=== PATIENT | female | born 1985 ===

== ENCOUNTER 2017-09-25 20:03 | Emergency (ER) | payer SELFPAY ==
[2017-09-25 20:18] VITALS: RESP 16
--- NOTE | 2017-09-25 21:29 | ED PDOC ---
HPI: Chest Pain Time Seen by Provider: 09/25/17 20:56 Chief Complaint (Nursing): Chest Pain Chief Complaint (Provider): chest pain History Per: Patient, It Support Specialist ([id number]) History/Exam Limitations: no limitations Onset/Duration Of Symptoms: Hrs (8) Current Symptoms Are (Timing): Still Present Additional History Per: Patient Additional Complaint(s): 32 y/o female no past medical history presents with left-sided chest pain x 9 hours. Associated generalized weakness and fatigue; patient has a suspicion she could be . Denies fever, cough, congestion, nausea/vomiting, shortness of breath, palpitations, abdominal pain, recent travel, urinary symptoms, vaginal bleeding/discharge, leg pain/swelling. Past Medical History Reviewed: Historical Data, Nursing Documentation, Vital Signs Vital Signs: Last Vital Signs Temp 98.2 F 09/25/17 20:14 Pulse 89 09/25/17 20:14 Resp 16 09/25/17 20:14 BP 125/80 09/25/17 20:14 Pulse Ox 97 09/25/17 21:29 - Medical History PMH: No Chronic Diseases - Surgical History Surgical History: No Surg Hx - Family History Family History: States: No Known Family Hx - Living Arrangements Living Arrangements: With Family - Social History Current smoker - smoking cessation education provided: No Alcohol: None Drugs: Denies - Home Medications Home Medications: Ambulatory Orders Medication Instructions Recorded Nitrofurantoin Macrocrystals 100 mg PO BID #13 cap 09/26/17 [Macrobid] - Allergies Allergies/Adverse Reactions: Allergies Allergy/AdvReac Type Severity Reaction Status Date / Time No Known Allergies Allergy Verified 09/25/17 20:18 Review of Systems ROS Statement: Except As Marked, All Systems Reviewed And Found Negative Cardiovascular: Positive for: Chest Pain Physical Exam - Reviewed Nursing Documentation Reviewed: Yes Vital Signs Reviewed: Yes - Physical Exam Appears: Positive for: Well, Non-toxic, No Acute Distress Head Exam: Positive for: ATRAUMATIC, NORMAL INSPECTION, NORMOCEPHALIC Skin: Positive for: Normal Color Eye Exam: Positive for: Normal appearance ENT: Positive for: Normal ENT Inspection Cardiovascular/Chest: Positive for: Regular Rate, Rhythm Respiratory: Positive for: Normal Breath Sounds Gastrointestinal/Abdominal: Positive for: Normal Exam Back: Positive for: Normal Inspection Extremity: Positive for: Normal ROM. Negative for: Calf Tenderness Neurologic/Psych: Positive for: Alert, Oriented - Laboratory Results Result Diagrams: 09/25/17 22:30 09/25/17 22:30 - ECG ECG: Positive for: Viewed By Me (reviewed by ED attending) ECG Rhythm: Positive for: Sinus Rhythm O2 Sat by Pulse Oximetry: 97 - Progress ED Course And Treament: labs, ekg, urine Patient educated on findings, discharged with rx macrobid (dose given in ED) Advised vitamins. Follow up chief architect Return precautions given. Disposition - Clinical Impression Clinical Impression: Atypical chest pain, , UTI (urinary tract infection) - Patient ED Disposition Is Patient to be Admitted: No Counseled Patient/Family Regarding: Studies Performed, Diagnosis, Need For Followup, Rx Given - Disposition [facility] Disposition: Routine/Home Disposition Time: 00:05 Condition: IMPROVED Prescriptions: Nitrofurantoin Macrocrystals [Macrobid] 100 mg PO BID #13 cap Instructions: Urinary Tract Infections in Adults, Care, Chest Pain That Is Not Caused by the Heart (DC) Forms: [employer] (Italian) Print Language: SENEGALESE
[2017-09-25] MEDS ORDERED: Sodium Chloride 0.9% 1,000 ML IV STA (22:20)
[2017-09-25 22:40] LABS: BASO # 0.1 K/uL (0.0-0.2); BASO % 0.7 % (0.0-2.0); EOS # 0.1 K/uL (0.0-0.7); EOS % 0.5 % (0.0-4.0); HEMOGLOBIN 13.9 g/dL (12.0-16.0); LYMPH # 3.7 K/uL (1.0-4.3); LYMPH % 29.9 % (20.0-40.0); MEAN CELL VOLUME 88.7 fl (81.0-99.0); MEAN CORPUSCULAR HEMOGLOBIN 30.1 pg (27.0-31.0); MEAN CORPUSCULAR HGB CONC 33.9 g/dL (33.0-37.0); MONO # 0.6 K/uL (0.0-0.8); MONO % 4.9 % (0.0-10.0); NRBC % 0.1 % (0.0-0.0); RBC 4.63 Mil/uL (3.80-5.20); RED CELL DISTRIBUTION WIDTH 13.1 % (11.5-14.5); WHITE BLOOD COUNT 12.6 K/uL (4.8-10.8)
[2017-09-25 22:44] LABS: ALB/GLOB RATIO 1.2 (1.0-2.1); ALBUMIN 4.2 g/dL (3.5-5.0); ALT/SGPT 31 U/L (9-52); AST/SGOT 18 U/L (14-36); BLOOD UREA NITROGEN 10 mg/dl (7-17); CALCIUM 9.3 mg/dL (8.4-10.2); GFR AFRICAN-AMERICAN > 60; GFR NON-AFRICAN AMERICAN > 60
[2017-09-26 00:10] VITALS: BP 125/81; PULSE 78; TEMP 98.1; O2SAT 98
--- NOTE | 2017-09-26 09:51 | CARD ---
APPROVED REPORT EKG Measurement Heart [id number] <Conclusion> Normal sinus rhythm Normal ECG
== END 2017-09-26 00:11 | disposition home or self-care (01) ==
LOC: H.ER 20:03
DX: R07.89 Other chest pain (principal); O23.40 Unspecified infection of urinary tract in pregnancy, unspecified trimester
CPT/HCPCS: 80053; 81025; 84484; 84702; 85025; 93005; 99284; J7040

== ENCOUNTER 2018-04-25 09:54 | Emergency (ER) | payer SELFPAY ==
[2018-04-25 10:24] VITALS: BMI 39.0
[2018-04-25] MEDS ORDERED: Betamethasone Soluspan 30 mg/5mL Inj Susp IM ONE (11:00)
--- NOTE | 2018-04-25 11:44 | OBHP ---
Datetime: 04/25/2018 11:40 IP Adm Impression: , intrauterine ; No Active Labor IP Admit Plan: Observation/Evaluation Admit Comment, IP Provider: Patient is a 32-year-old 2 para 1 estimated due date 05/23/2018 estimated gestational age 36 weeks patient presents to labor and delivery for betamethasone. Patient has history of preeclampsia [facility] recommends delivery at approximately 38 weeks. She reports good movement no vaginal bleeding or leakage of fluid Past medical history none Medications none Past surgical history none No known drug allergies Review of systems patient denies headache chest pain shortness of breath palpitations nausea vomit ing heat or cold intolerance easy bruisability musculoskeletal or neurological complaints Vital signs stable afebrile Physical exam see notes Intrauterine at 36 weeks Steroids administered Patient to follow up with PMD in 1 week movement counts Labor precautions Pelvic Type - PN: Adequate Extremities - PN: Not Done Abdomen - PN: Normal Back - PN: Not Done Breast - PN: Not Done Lungs - PN: Not Done Heart - PN: Not Done Thyroid - PN: Not Done Neurologic - PN: Normal HEENT - PN: Normal General - PN: Normal EGA AdmitDate IP: 36.0 Vital Signs Provider: Reviewed IP Chief Complaint: Other DTRs - PN: Normal
[2018-04-25 19:53] VITALS: BP 112/67; PULSE 84; RESP 20; O2SAT 98
== END 2018-04-25 11:20 | disposition home or self-care (01) ==
LOC: H.EROB2 09:54 → H.EROB 09:56 → H.EROB2 11:20
DX: O09.93 Supervision of high risk pregnancy, unspecified, third trimester (principal); Z23 Encounter for immunization; Z3A.36 36 weeks gestation of pregnancy
CPT/HCPCS: 96372; 99283; J0702

== ENCOUNTER 2018-04-26 09:34 | Emergency (ER) | payer SELFPAY ==
[2018-04-25 10:24] VITALS: BMI 39.0
[2018-04-26] MEDS ORDERED: Betamethasone Soluspan 30 mg/5mL Inj Susp IM ONE (09:48)
[2018-04-26 17:15] VITALS: BP 116/71; PULSE 78; RESP 18; TEMP 98
--- NOTE | 2018-04-27 09:10 | OBHP ---
Datetime: 04/26/2018 09:24 IP Adm Impression: No Active Labor IP Admit Plan: Observation/Evaluation; Discharge home Admit Comment, IP Provider: 32 yo F at 36.1 wks presents for second deose of betamethasone (1st given 10:47am 04/25). Prior history includes preeclampsia. Denies vaginal bleeding, contractions and loss of fluid and reports good movement. M recomended steroids at 36 wks and delivery at 38- 39 wks. : [facility] Past medical history: none Meds: ASA (d/c at 37 weeks), PNV Past surgical history: none OBHx: preeclampsia Allergies: none FHx: denies Ros: patient denies headache, chest pain, shortness of breath, palpitations, nausea, vomiting, hea t or cold intolerance, easy bruisabilit,y musculoskeletal or neurological complaints PE: vitals stable, afebrile, in no acute distress, comfortable CV: RRR Resp: no respiratory distress Abd: no tenderness Extremities: no pitting edema Assessment: 32 yo F at 36.1 wks presents for second deose of betamethasone (1st given 10:47am 04/25). Plan -Intrauterine at 36.1 weeks -EFM: reassuring, Category 1 -Steroids administered - Betamethasone 12mg IM once - kick counts -Labor precautions -As per [facility]: nst/bpp weekly until delivery 04/26/2018; f/u appointment 05/04/2018 [facility] with Dr. Mandy read Case discussed with Dr. Sapp. ---Allison Anderson, PGY1 [facility] Family Medicine Pelvic Type - PN: Adequate Extremities - PN: Normal Abdomen - PN: Normal Back - PN: Not Done Breast - PN: Not Done Lungs - PN: Normal Heart - PN: Normal Thyroid - PN: Not Done Neurologic - PN: Not Done HEENT - PN: Normal General - PN: Normal FHR - Baseline A Provider: 150 Membranes, Provider: Intact Pool Provider: Negative EGA AdmitDate IP: 36.1 Vital Signs Provider: Reviewed; Within Normal Limits IP Chief Complaint: Other NICHD Variability Prov Fetus A: Moderate 6-25bpm NICHD Accel Fetus A IP Provider: 15X15 FHR Category Provider Fetus A: Category I NICHD Decel Fetus A IP Provider: None Genitourinary Exam: Not Done DTRs - PN: Not Done
== END 2018-04-26 11:52 | disposition home or self-care (01) ==
LOC: H.EROB2 09:34 → H.EROB 09:38 → H.EROB2 11:52
DX: O09.93 Supervision of high risk pregnancy, unspecified, third trimester (principal); Z3A.36 36 weeks gestation of pregnancy
CPT/HCPCS: 96372; 99281; J0702

== ENCOUNTER 2018-05-03 13:14 | Emergency (ER) | payer SELFPAY ==
[2018-05-03 21:23] VITALS: BP 112/65; PULSE 87; RESP 18; O2SAT 100
--- NOTE | 2018-05-04 04:03 | OBHP ---
Datetime: 05/03/2018 17:55 IP Adm Impression: Term, intrauterine IP Admit Plan: Observation/Evaluation; Discharge home Admit Comment, IP Provider: 32 yo with IUP @ 37 +1 weeks based on JOHNATHAN of 05/23/18 was sent from Ultrasound for non-reactive stress test today 05/03/18. She denies contractions, vaginal bleeding an d gush of fluid per the vagina. She reports feeling well and states that she has felt baby moving sev eral times. Patient follows at [facility]. Denies chest pain, shortness of breath, fevers, nausea, vomiting or dysuria. ROS: Systems reviewed and negative except for stated above in HPI. OBhx: 1 - male, 7 lbs- @ 41wks - h/o of gHTN in this ; no complications PMH: Denies Family hx: Denies Social hx: Denies smoking history, illicit drug use or alcohol use. Allergies: N.K.D.A Medications: Aspirin Labs: HIV: Negative HbsAg: negative GBS: unknown Rubella: immune Gc/Cl: negative RPR: negative ABO: B+ Ab:negative Physical exam: No acute distress. Heart: S1 and S2 appreciated. Lungs: Clear air entry bilaterally. Abdomen: Gravid, soft, non-tender to palpation. FHT: Reactve; 150 baseline; moderate variability; Accelerations present. No decelerations. Categor y 1 tracing. Assessment: 32 yo with IUP @ 37 +1 weeks based on JOHNATHAN of 05/23/18 was sent from Ultrasound fo r non-reactive stress test today 05/03/18, NST currently reactive for at least 20 minutes. Plan: - NST reactive over 20 minutes. - Patient stable for discharge and given Labor precautions. Case discussed with Dr. Sapp ---Payton Zhu, PGY1 [employer]. Addendum: Patient transferred from ultrasound unit for prolonged monitoring due to non-reactive NST. While a t OB ED, NST reactive. Today's biophysical profile 8 out of 8. Patient discharged home with labor pre cautions. Patient will follow up in office as already scheduled. Discussed plan with patient and all patient questions answered. [place] Pelvic Type - PN: Adequate Extremities - PN: Normal Abdomen - PN: Normal Back - PN: Not Done Breast - PN: Normal Lungs - PN: Normal Heart - PN: Normal Thyroid - PN: Not Done Neurologic - PN: Not Done HEENT - PN: Not Done General - PN: Normal FHR - Baseline A Provider: 150 EGA AdmitDate IP: 37.1 Vital Signs Provider: Reviewed; Within Normal Limits IP Chief Complaint: Decreased movement NICHD Variability Prov Fetus A: Moderate 6-25bpm NICHD Accel Fetus A IP Provider: 15X15 FHR Category Provider Fetus A: Category I NICHD Decel Fetus A IP Provider: None Genitourinary Exam: Normal DTRs - PN: Not Done
== END 2018-05-03 15:00 | disposition home or self-care (01) ==
LOC: H.EROB2 13:14
DX: O76 Abnormality in fetal heart rate and rhythm complicating labor and delivery (principal); Z3A.37 37 weeks gestation of pregnancy; O47.1 False labor at or after 37 completed weeks of gestation

== ENCOUNTER 2018-05-13 08:46 | Inpatient (IN) | payer MEDICAID, SELFPAY ==
[2018-05-13 10:10] VITALS: BMI 39.4
[2018-05-13] MEDS ORDERED: Lactated Ringer's 1,000 ML IV SCH ×2 (10:15→13:45)
[2018-05-13] MEDS ORDERED: Lactated Ringer's 1,000 ML IV ONE (13:00)
[2018-05-13 13:54] LABS: BASO % 0.3 % (0.0-2.0); EOS % 0.2 % (0.0-4.0); HEMOGLOBIN 13.2 g/dL (12.0-16.0); LYMPH # 1.9 K/uL (1.0-4.3); LYMPH % 18.5 % (20.0-40.0); MEAN CELL VOLUME 88.8 fl (81.0-99.0); MEAN CORPUSCULAR HEMOGLOBIN 29.9 pg (27.0-31.0); MEAN CORPUSCULAR HGB CONC 33.7 g/dL (33.0-37.0); MEAN PLATELET VOLUME 9.3 fl (7.2-11.7); MONO # 0.4 K/uL (0.0-0.8); NEUT # 7.8 K/uL (1.8-7.0); RBC 4.4 Mil/uL (3.80-5.20); RED CELL DISTRIBUTION WIDTH 14.1 % (11.5-14.5); WHITE BLOOD COUNT 10.1 K/uL (4.8-10.8)
[2018-05-13] MEDS ORDERED: Fentanyl/Bupivacaine HCl 250 ML EPI ONE (15:37)
[2018-05-13] MEDS ORDERED: Oxytocin 30 UNIT 30 UNITS/500 ML BAG IV ONE ×3 (16:17→19:47)
[2018-05-13] MEDS ORDERED: OXYTOCIN/0.9 % NS 20 UNIT/1,000 ML BAG IV ONE (16:17)
--- NOTE | 2018-05-13 16:52 | OBADHP ---
Datetime: 05/13/2018 16:23 FHR - Baseline A Provider: 145 Membranes, Provider: Intact NICHD Variability Prov Fetus A: Moderate 6-25bpm NICHD Accel Fetus A IP Provider: 15X15 FHR Category Provider Fetus A: Category I Dilatation, Provider: 5-6 Effacement, Provider: 90 Station, Provider: -2 Datetime: 05/13/2018 12:51 Admit Comment, IP Provider: 32 yo with IUP @ 38.4 weeks based on JOHNATHAN of 05/23/18 presents wi th contractions and vaginal spotting. Contractions started 3 AM today, regular, increasing in frequen cy, with lower abdominal/pelvic pain. Ptient also reports scent vaginal spotting and leaking of trans parent fluid. Reports good movements. Denies chest pain, shortness of breath, fevers, nausea, v omiting or dysuria. Patient scheduled for IOL as per MFM on 05/15/18 due to suspected macrosomia and H/O preeclam psia in previous . ROS: Systems reviewed and negative except for stated above in HPI. Antenatla course: Mild protenuria, Suspected macrosomia EFW 3800gm @ 39 Wk, Scheduled for in duction on 05/15/18 as per MFM. OBhx: 1 - male, 7 lbs- @ 41wks - h/o of gHTN?preeclampsia? in this ; no complication s PMH: Denies Family hx: Denies Social hx: Denies smoking history, illicit drug use or alcohol use. Allergies: N.K.D.A Medications: Aspirin Labs: HIV: Negative HbsAg: negative GBS: Negative Rubella: immune Gc/Cl: negative RPR: negative ABO: B+ Ab:negative Physical exam: No acute distress. Heart: RRR, S1S2 present Lungs: CTA B/L Abdomen: Gravid, soft, non-tender to palpation. SSE: Neg pooling and nitrazine, No active VB SVE: 4/90%/-1 FHT: Reactive; 150 baseline; moderate variability; Accelerations present. No decelerations. Catego ry 1 tracing. Assessment: 32 yo with IUP @ 38.4 weeks based on JOHNATHAN of 05/23/18 with contractions and vag inal spotting. - Latent stage of labor Plan: - Will admit patient to unit - initiate labor protocol - CBC, Type and screen - LR @ 999 and 125 ml/hr - Anesthesia consult for epidural - All questions answered. Case discussed with Dr. Sekou Moffett, PGY1 Addendum: I saw on exam patient to presentation. Plan to admit for management of labor and delivery. Discuss ed plan with patient and all patient questions answered. heart tracing category 1. Sekou Pelvic Type - PN: Not Done Extremities - PN: Normal Abdomen - PN: Normal Back - PN: Normal Breast - PN: Not Done Lungs - PN: Normal Heart - PN: Normal Thyroid - PN: Not Done Neurologic - PN: Normal HEENT - PN: Normal General - PN: Normal Comments, ACOG Physical Exam: Physical exam: No acute distress. Heart: RRR, S1S2 present Lungs: CTA B/L Abdomen: Gravid, soft, non-tender to palpation. SSE: Neg pooling and nitrazine, No active VB SVE: 4cm/90%/High Pool Provider: Negative Nitrazine Provider: Negative IP Hx Assessment: The History has been Reviewed and is Current Vital Signs Provider: Reviewed; Within Normal Limits IP Chief Complaint: Uterine contractions; Suspected ruptured membranes; Vaginal bleeding NICHD Decel Fetus A IP Provider: None Genitourinary Exam: Normal DTRs - PN: Not Done EGA AdmitDate IP: 38.4 IP Adm Impression: Term, intrauterine IP Admit Plan: Admit to unit; Initiate labor protocol Datetime: 05/13/2018 09:45 Contraction Comments Provider: Regular
--- NOTE | 2018-05-13 17:47 | OBPN ---
Datetime: 05/13/2018 17:44 IP Progress Impression Other: category 1 heart tracing IP Procedures: Sterile Vag Exam IP Progress Plan: Augmentation FHR - Baseline A Provider: 140s-150s IP Progress Note Comment: Patient comfortable status post epidural heart tracing category 1 Start Pitocin augmentation Discussed plan with the patient and all patient questions answered Vital Signs Provider: Reviewed; Within Normal Limits NICHD Accel Fetus A IP Provider: 15X15 FHR Category Provider Fetus A: Category I NICHD Variability Prov Fetus A: Moderate 6-25bpm Dilatation, Provider: 5-6 Effacement, Provider: 100 Station, Provider: -2 NICHD Decel Fetus A IP Provider: None Datetime: 05/13/2018 17:41 IP Progress Impression: Normal progression of labor Membranes, Provider: Intact Datetime: 05/13/2018 12:51 Pool Provider: Negative Nitrazine Provider: Negative Datetime: 05/13/2018 09:45 Contraction Comments Provider: Regular
[2018-05-13] MEDS ORDERED: Lidocaine 1% Inj (20ml) ONE (19:17)
[2018-05-13] MEDS ORDERED: OXYTOCIN/0.9 % NS 20 UNIT/1,000 ML BAG IV SCH (20:00)
[2018-05-13] MEDS ORDERED: Benzocaine/Menthol SPRAY TOP PRN (21:46)
[2018-05-13] MEDS ORDERED: Oxycodone/Acetaminophen 5/325 mg Tab PO PRN ×2 (21:46)
[2018-05-14] MEDS ORDERED: Oxycodone/Acetaminophen 5/325 mg Tab PO PRN ×2 (00:23)
[2018-05-14] MEDS ORDERED: OXYTOCIN/0.9 % NS 20 UNIT/1,000 ML BAG IV SCH (00:23)
--- NOTE | 2018-05-14 01:43 | OBDS ---
DELIVERY PERSONNEL Delivery Doctor: Boni Justin DO Charity Fundraiser: Boni Grey RN; Mauri Armendariz RN Anesthesiologist: Lisandra Treviño MD Resident: Dr. Su; Dr. Radha Moffett MATERNAL INFORMATION Delivery Anesthesia: Epidural Medications in Delivery: Pitocin Estimated Blood Loss (ml): 200 Placenta Cultured: No Maternal Complications: None Provider Comments: 32 YO @ 38.4wks IUP was admitted for active labor. of a viable female i nfant from cephalic presentation infants head delivered in a controlled manner. 1x loose nuchal co rd was noted and reduced. was bulb suctioned at the perineum and was crying spontaneously. Inf ant was placed on mother's stomach, 9/9, weight 3704g. Cord was doubled clamped and cut by terrie cisneros. Placenta was delivered intact spontaneously. 1 Right labial and perieal lacerations were noted an d repaired. Mother and baby tolerated the procedure well. Peggy Su, PGY II OB Hospitalist on-call: earl sign out rec'd...I attended this delivery and repair was done ... agree with note MAHNDO LABOR SUMMARY EDC: 05/23/2018 00:00 No. Babies in Womb: 1 Attempted: No Labor Anesthesia: Epidural LABOR INFORMATION Reason for Induction: Not Applicable Onset of Labor: 05/13/2018 03:00 Complete Dilatation: 05/13/2018 20:00 Oxytocin: Augmentation Group B Beta Strep: Negative Antibiotics # of Doses: N/A Antibiotics Time of Last Dose: N/A Steroids Given: None Reason Steroids Not Administered: Not Applicable Other Reason Not Administered: N/A MEMBRANES Membranes Rupture Method: Artificial Rupture of Membranes: 05/13/2018 21:10 Length of Rupture (hrs): 0.48 Amniotic Fluid Color: Light Meconium Amniotic Fluid Amount: Small Amniotic Fluid Odor: None STAGES OF LABOR Stage 1 hrs: 17 Stage 1 min: 0 Stage 2 hrs: 1 Stage 2 min: 39 Stage 3 hrs: 0 Stage 3 min: 7 Total Time in Labor hrs: 18 Total Time in Labor min: 46 VAGINAL DELIVERY Episiotomy: None Laceration Extension: First Degree Laceration Type: Perineal Other Laceration: right labial Laceration Repair: Yes Laceration Repair Note: 1st deg laceration noted in the R Labia and one noted in the perineal area. Both repaired via 3.0 and 2.0 vicryl, approx 4cc of Lidocaine used. Initial Vag Sponge Count: 5 laps Final Vag Sponge Count: 5 laps Initial Vag Sharps Count: 3 Final Vag Sharps Count: 3 Sponge Count Correct: Yes Sharps Count Correct: Yes Count Comment: Count correct and Dr. Su acknowledged. BABY A INFORMATION Delivery Date/Time: 05/13/2018 21:39 Method of Delivery: Vaginal Born in Route : No : N/A Forceps: N/A Vacuum Extraction: N/A Shoulder Dystocia : No SHOULDER DYSTOCIA BABY A Delivery Date/Time: 05/13/2018 21:39 PRESENTATION/POSITION BABY A Presentation: Cephalic Cephalic Presentation: Vertex Breech Presentation: N/A PLACENTA INFORMATION BABY A Placenta Delivery Time : 05/13/2018 21:46 Placenta Method of Delivery: Spontaneous Placenta Status: Delivered SCORES BABY A Heart Rate 1 min: >100 bpm Resp Effort 1 min: Good Cry Reflex Irritability 1 min: Cough or Sneeze or Pulls Away Muscle Tone 1 min: Active Motion Color 1 min: Body [place], Extremities Blue Resuscitation Effort 1 min: Tactile Stimulation SCORE 1 MIN: 9 Heart Rate 5 min: >100 bpm Resp Effort 5 min: Good Cry Reflex Irritability 5 min: Cough or Sneeze or Pulls Away Muscle Tone 5 min: Active Motion Color 5 min: Body [place], Extremities Blue Resuscitation Effort 5 min: N/A SCORE 5 MIN: 9 INFANT INFORMATION BABY A Gestational Age at Delivery: 38.4 Gestational Status: Term Outcome : Liveborn Condition : Stable Infant Sex: Female IDENTIFICATION/MEDS BABY A ID Band Number: [id number] ID Band Location: Left Leg; Left Arm Vitamin K Given : Left Thigh Erythromycin Given: Given Both Eyes WEIGHT/LENGTH BABY A Infant Birthweight (gms): 3705 Weight (lb): 8 Weight (oz): 3 CORD INFORMATION BABY A No. Cord Vessels: 3 Nuchal Cord : Around Neck x1, Loose Nuchal Cord Other: 0 True Knot: 0 Cord pH Baby Arterial: N/A Cord pH Baby Venous: N/A Cord Blood Taken: Yes Banking/Donate Info: N/A Suction: Mouth; Nose ASSESSMENT BABY A Complications: Meconium Physical Findings at Delivery: Within Normal Limits Infant Respirations: Appears Normal Speed Winder/ALS Called : No Infant Care By: Dr. Reardon Transferred To: Remains with Mother
--- NOTE | 2018-05-14 01:47 | OBDS ---
DELIVERY PERSONNEL Delivery Doctor: Boni Justin DO Stockroom Inventory Clerk: Boni Grey RN; Mauri Armendariz RN Anesthesiologist: Lisandra Treviño MD Resident: Dr. Su; Dr. Radha Moffett MATERNAL INFORMATION Delivery Anesthesia: Epidural Medications in Delivery: Pitocin Estimated Blood Loss (ml): 200 Placenta Cultured: No Maternal Complications: None Provider Comments: 32 YO @ 38.4wks IUP was admitted for active labor. of a viable female i nfant from cephalic presentation infants head delivered in a controlled manner. 1x loose nuchal co rd was noted and reduced. was bulb suctioned at the perineum and was crying spontaneously. Inf ant was placed on mother's stomach, 9/9, weight 3704g. Cord was doubled clamped and cut by terrie cisneros. Placenta was delivered intact spontaneously. 1 Right labial and perieal lacerations were noted an d repaired. Mother and baby tolerated the procedure well. Peggy Su, PGY II OB Hospitalist on-call: earl sign out rec'd...I attended this delivery and repair was done ... agree with note MAHNDO LABOR SUMMARY EDC: 05/23/2018 00:00 EDC: 05/23/2018 00:00 EDC: 05/23/2018 00:00 No. Babies in Womb: 1 Attempted: No Labor Anesthesia: Epidural LABOR INFORMATION Reason for Induction: Not Applicable Onset of Labor: 05/13/2018 03:00 Complete Dilatation: 05/13/2018 20:00 Oxytocin: Augmentation Group B Beta Strep: Negative Antibiotics # of Doses: N/A Antibiotics Time of Last Dose: N/A Steroids Given: None Reason Steroids Not Administered: Not Applicable Other Reason Not Administered: N/A MEMBRANES Membranes Rupture Method: Artificial Rupture of Membranes: 05/13/2018 21:10 Length of Rupture (hrs): 0.48 Amniotic Fluid Color: Light Meconium Amniotic Fluid Amount: Small Amniotic Fluid Odor: None STAGES OF LABOR Stage 1 hrs: 17 Stage 1 min: 0 Stage 2 hrs: 1 Stage 2 min: 39 Stage 3 hrs: 0 Stage 3 min: 7 Total Time in Labor hrs: 18 Total Time in Labor min: 46 VAGINAL DELIVERY Episiotomy: None Laceration Extension: First Degree Laceration Type: Perineal Other Laceration: right labial Laceration Repair: Yes Laceration Repair: Yes Laceration Repair Note: 1st deg laceration noted in the R Labia and one noted in the perineal area. Both repaired via 3.0 and 2.0 vicryl, approx 4cc of Lidocaine used. Initial Vag Sponge Count: 5 laps Final Vag Sponge Count: 5 laps Initial Vag Sharps Count: 3 Final Vag Sharps Count: 3 Sponge Count Correct: Yes Sharps Count Correct: Yes Count Comment: Count correct and Dr. Su acknowledged. BABY A INFORMATION Delivery Date/Time: 05/13/2018 21:39 Method of Delivery: Vaginal Born in Route : No : N/A Forceps: N/A Vacuum Extraction: N/A Shoulder Dystocia : No SHOULDER DYSTOCIA BABY A Delivery Date/Time: 05/13/2018 21:39 PRESENTATION/POSITION BABY A Presentation: Cephalic Cephalic Presentation: Vertex Breech Presentation: N/A PLACENTA INFORMATION BABY A Placenta Delivery Time : 05/13/2018 21:46 Placenta Method of Delivery: Spontaneous Placenta Status: Delivered SCORES BABY A Heart Rate 1 min: >100 bpm Resp Effort 1 min: Good Cry Reflex Irritability 1 min: Cough or Sneeze or Pulls Away Muscle Tone 1 min: Active Motion Color 1 min: Body [place], Extremities Blue Resuscitation Effort 1 min: Tactile Stimulation SCORE 1 MIN: 9 Heart Rate 5 min: >100 bpm Resp Effort 5 min: Good Cry Reflex Irritability 5 min: Cough or Sneeze or Pulls Away Muscle Tone 5 min: Active Motion Color 5 min: Body [place], Extremities Blue Resuscitation Effort 5 min: N/A SCORE 5 MIN: 9 INFORMATION BABY A Gestational Age at Delivery: 38.4 Gestational Status: Term Infant Outcome : Liveborn Infant Condition : Stable Sex: Female IDENTIFICATION/MEDS BABY A ID Band Number: [id number] ID Band Location: Left Leg; Left Arm Vitamin K Given : Left Thigh Erythromycin Given: Given Both Eyes WEIGHT/LENGTH BABY A Infant Birthweight (gms): 3705 Weight (lb): 8 Weight (oz): 3 CORD INFORMATION BABY A No. Cord Vessels: 3 Nuchal Cord : Around Neck x1, Loose Nuchal Cord Other: 0 True Knot: 0 Infant Cord pH Baby Arterial: N/A Cord pH Baby Venous: N/A Cord Blood Taken: Yes Banking/Donate Info: N/A Infant Suction: Mouth; Nose ASSESSMENT BABY A Infant Complications: Meconium Physical Findings at Delivery: Within Normal Limits Infant Respirations: Appears Normal Senior Investigator/ALS Called : No Infant Care By: Dr. Reardon Transferred To: Remains with Mother
[2018-05-14 06:48] LABS: BASO % 0.2 % (0.0-2.0); EOS % 0.1 % (0.0-4.0); HEMOGLOBIN 11.3 g/dL (12.0-16.0); LYMPH # 2.6 K/uL (1.0-4.3); LYMPH % 18.1 % (20.0-40.0); MEAN CELL VOLUME 88.9 fl (81.0-99.0); MEAN CORPUSCULAR HEMOGLOBIN 29.7 pg (27.0-31.0); MEAN CORPUSCULAR HGB CONC 33.4 g/dL (33.0-37.0); MEAN PLATELET VOLUME 9.5 fl (7.2-11.7); MONO # 0.7 K/uL (0.0-0.8); MONO % 5.1 % (0.0-10.0); NEUT # 10.9 K/uL (1.8-7.0); NEUT % 76.5 % (50.0-75.0); RBC 3.79 Mil/uL (3.80-5.20); RED CELL DISTRIBUTION WIDTH 14.4 % (11.5-14.5); WHITE BLOOD COUNT 14.2 K/uL (4.8-10.8)
--- NOTE | 2018-05-14 07:43 | OBPPN ---
Datetime: 05/14/2018 07:38 PP Pain Prov: Within normal limits PP Abdomen/Uterus Prov: Normal PP Lochia Prov: Normal PP Extremities Prov: Normal PP Progress Prov: Normal PP Impression Prov: Normal progression PP Plan Prov: Continue present management PP Progress Note Prov: PPD 1 s/p , doing well, breast feeding Continue current care Vital Signs Provider PP: Reviewed
[2018-05-14] MEDS ORDERED: Influenza Vaccine (5 YR UP)/PF 60 MCG/0.5 ML SYR IM ONE (08:25)
[2018-05-14] MEDS ORDERED: Influenza Vaccine 60 MCG/0.5 ML SYR (3 yr & up) IM ONE (08:46)
[2018-05-14] MEDS: Benzocaine/Menthol SPRAY TOP PRN ×2 (09:48→20:32)
--- NOTE | 2018-05-15 08:49 | OBDCSUM ---
Datetime: 05/15/2018 07:19 Discharged to, Provider: Home Follow up at, Provider: [facility] Disch Instr Activity: Normal activity; May be up to bathroom; May be up for meals; May Shower Disch Instr Diet: Regular Discharge Instructions, Provider: Routine instructions given Discharge Diagnosis, Provider: Term Delivered Discharge Time: 05/15/2018 11:00 Follow up in weeks, Provider: 4 to 6 weeks Disch Referrals: None Contraception discussed, Prov: Yes Disch Activity Restrictions: No lifting; No sexual activity; Nothing in vagina - [place], tampon s, douche Discharge Comment, Provider: -Continue regular diet. -Ambulation as tolerated encouraged. - encouraged. -Continue Ibuprofen prn for mild pain. -If you develop fever or increased vaginal bleedin/pain, go to ED. Attending addendum: I saw and examined the patient at bedside myselft this morning. I reviewed the resident note above and agree with findings and management. DC home today. Brenda Urbano MD Contraception after Delivery: Foam/Condoms
--- NOTE | 2018-05-15 08:50 | OBPPN ---
Datetime: 05/15/2018 07:14 PP Pain Prov: Within normal limits PP Nausea Prov: Denies PP Flatus Prov: Yes PP BM Prov: Yes PP Breasts Prov: Normal PP Heart Prov: Normal PP Lungs Prov: Normal PP Abdomen/Uterus Prov: Normal PP Lochia Prov: Normal PP Vulva/Perineum Prov: Normal PP CVA Tenderness Prov: Not Done PP Extremities Prov: Normal PP C/S Incision Prov: Not Applicable PP Progress Prov: Normal PP Impression Prov: Normal progression PP Plan Prov: Continue present management; Discharge PP Progress Note Prov: S: No acute overnight events. Pt is seen and examined by bedside. Doing well PPD 2. Tolerating PO diet, ambulating and voiding. baby. BM yesterday, and passing gas. Vaginal bleeding has significantly decreased since delivery, light menses now. O: VS reviewed, afebrile GEN: NAD, looks tired H: S1S2, no additional heart sounds R: clear breath sounds b/l A: obese, NT, BS+, soft, fundus @ [facility]B Neuro: AAO x 3 Ext: no edema, non-tender A/P: delivered baby girl via NVD on 05/13/18. PPD 2, doing well. -will d/c home -cont ambulating and -PO Motrin for pain and colace for constipation -follow up 6 wks PP and 2-3days for baby Peggy Su, PGY II Attending addendum: I saw and examined the patient at bedside myselft this morning. I reviewed the resident note above and agree with findings and management. DC home today. Brenda Urbano MD IP PP Procedures: None Vital Signs Provider PP: Reviewed; Within Normal Limits
[2018-05-15 18:15] VITALS: BP 110/68; PULSE 70; RESP 20; TEMP 98.4; O2SAT 100
== END 2018-05-15 14:00 | disposition home or self-care (01) | DRG 560 ==
LOC: H.EROB2 08:46 → H.L&D 09:17 → H.EROB2 13:12 → H.OB/GYN 05-14
PROVIDERS: ADMIT Obstetrics & Gynecology; ATTEND Obstetrics & Gynecology
PROC: 10E0XZZ Delivery of Products of Conception, External Approach (ICD-10-PCS; principal; 2018-05-13)
PROC: 0HQ9XZZ Repair Perineum Skin, External Approach (ICD-10-PCS; 2018-05-13)
PROC: 10907ZC Drainage of Amniotic Fluid, Therapeutic from Products of Conception, Via Natural or Artificial Opening (ICD-10-PCS; 2018-05-13)
PROC: 4A1HXCZ Monitoring of Products of Conception, Cardiac Rate, External Approach (ICD-10-PCS; 2018-05-13)
PROC: 3E02340 Introduction of Influenza Vaccine into Muscle, Percutaneous Approach (ICD-10-PCS; 2018-05-14)
DX: O77.0 Labor and delivery complicated by meconium in amniotic fluid (principal); O69.81X0 Labor and delivery complicated by cord around neck, without compression, not applicable or unspecified; O70.0 First degree perineal laceration during delivery; Z37.0 Single live birth; Z3A.38 38 weeks gestation of pregnancy; Z23 Encounter for immunization